=== PATIENT | female | born 1980 ===

== ENCOUNTER 2017-02-23 10:49 | Emergency (ER) | payer OTHER ==
[2017-02-23 10:55] VITALS: BP 151/95; PULSE 106; RESP 18; TEMP 98.2
[2017-02-23 11:00] VITALS: O2SAT 98
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
== END 2017-02-23 14:06 | disposition home or self-care (01) ==
LOC: MERGE 10:49 → H.ER 10:49
DX: S39.92XA Unspecified injury of lower back, initial encounter (principal); V43.52XA Car driver injured in collision with other type car in traffic accident, initial encounter; Y92.410 Unspecified street and highway as the place of occurrence of the external cause

== ENCOUNTER 2018-04-17 15:59 | Emergency (ER) | payer MEDICAID, OTHER ==
[2018-04-17 16:05] VITALS: RESP 18; O2SAT 99
--- NOTE | 2018-04-17 16:22 | ED PDOC ---
HPI: Female Pain Time Seen by Provider: 04/17/18 16:20 Chief Complaint (Nursing): Female Genitourinary Chief Complaint (Provider): with vaginal bleeding History Per: Patient Additional Complaint(s): 37-year-old female presents with vaginal bleeding that started earlier today. Patient states that she took several home test a few days ago and all came back positive. She estimates that she is approximately 67 weeks at this time. Patient was seen at primary care doctor's office and referred to ED for further evaluation. Patient states she did pass a large clot at home earlier today and has mild cramping pain. No fever or chills, no nausea or vomiting, no dysuria. PMD: [place] Past Medical History Reviewed: Historical Data, Nursing Documentation, Vital Signs Vital Signs: Last Vital Signs Temp 99.6 F 04/17/18 16:02 Pulse 116 H 04/17/18 16:02 Resp 18 04/17/18 16:02 BP 105/69 04/17/18 16:02 Pulse Ox 99 04/17/18 16:02 - Medical History PMH: No Chronic Diseases Other PMH: - Surgical History Other surgeries: Bartholin's cyst removal - Family History Family History: States: No Known Family Hx - Living Arrangements Living Arrangements: With Family - Social History Current smoker - smoking cessation education provided: No Alcohol: None Drugs: Denies - Home Medications Home Medications: Ambulatory Orders Medication Instructions Recorded Cyclobenzaprine [Cyclobenzaprine 10 mg PO BID #14 tab 02/23/17 HCl] Tramadol HCl [Ultram] 50 mg PO Q6 #6 tab 02/23/17 - Allergies Allergies/Adverse Reactions: Allergies Allergy/AdvReac Type Severity Reaction Status Date / Time No Known Allergies Allergy Verified 02/23/17 11:00 Review of Systems ROS Statement: Except As Marked, All Systems Reviewed And Found Negative Constitutional: Negative for: Fever Cardiovascular: Negative for: Chest Pain Respiratory: Negative for: Cough Gastrointestinal: Positive for: Abdominal Pain. Negative for: Nausea, Vomiting Genitourinary Female: Positive for: Vaginal Bleeding, Pelvic Pain. Negative for : Dysuria, Frequency, Vaginal Discharge Physical Exam - Reviewed Nursing Documentation Reviewed: Yes Vital Signs Reviewed: Yes - Physical Exam Appears: Positive for: Well, Non-toxic, No Acute Distress Skin: Positive for: Normal Color. Negative for: Rash Eye Exam: Positive for: Normal appearance Cardiovascular/Chest: Positive for: Regular Rate, Rhythm Respiratory: Positive for: Normal Breath Sounds Gastrointestinal/Abdominal: Positive for: Soft. Negative for: Tenderness, Distended, Guarding, Rebound Back: Negative for: L CVA Tenderness, R CVA Tenderness Extremity: Positive for: Normal ROM Neurologic/Psych: Positive for: Alert, Oriented - Laboratory Results Result Diagrams: 04/17/18 16:42 04/17/18 16:42 - ECG O2 Sat by Pulse Oximetry: 99 Pulse Ox Interpretation: Normal - Other Rad OB TV US X-Ray: Read By Radiologist X-Ray Interpretation: see below Medical Decision Making Medical Decision Makin-year-old female with vaginal bleeding Plan: Urine dip Urine test CBC CMP Blood type Beta TV OB US IV insertion US: FINDINGS: UTERUS: Uterus measures 7.7 x 4.7 x 5.4 cm. No intrauterine gestational sac identified. Normal in size and appearance. CERVIX: Measures 3.3 cm. Long and closed. No cervical abnormality seen. RIGHT OVARY: Measures 1.7 x 1.2 x 1.5 cm. No mass lesion. Normal flow. LEFT OVARY: Measures 3.3 x 2.0 x 2.1 cm. Complex cyst measuring 2.4 x 1.2 x 1.7 cm. Normal flow. FREE FLUID: None. OTHER FINDINGS: None. IMPRESSION: No intrauterine gestational sac. Findings may represent early normal/ abnormal with completed or ectopic not excluded. Close clinical follow-up with serial pelvic sonography and serum beta HCG levels is recommended. Complex left ovarian cyst measuring up to 2.4 cm. Beta is 16.75. Patient aware of diagnostic testing results. Patient was instructed to return to ED in 2 days for repeat beta, or sooner if acutely worse. Disposition - Clinical Impression Clinical Impression: Threatened miscarriage - Patient ED Disposition Is Patient to be Admitted: No Counseled Patient/Family Regarding: Studies Performed, Diagnosis, Need For Followup, Rx Given - Disposition Referrals: Frank Mendoza MD [Staff Provider] - Disposition: Routine/Home Disposition Time: 19:11 Condition: STABLE Additional Instructions: Return to emergency room in 2 days for repeat beta. Instructions: Threatened Miscarriage (DC) Forms: [employer] (Hungarian) Results - Lab Results Lab Results: 04/17/18 04/17/18 04/17/18 16:42 16:42 16:30 WBC 8.3 RBC 4.63 Hgb 13.8 Hct 40.6 MCV 87.7 MCH 29.9 MCHC 34.1 RDW 13.4 Plt Count 284 MPV 8.4 Neut % (Auto) 60.5 Lymph % (Auto) 26.9 [place] % (Auto) 10.4 H Eos % (Auto) 1.3 Baso % (Auto) 0.9 Neut # (Auto) 5.0 Lymph # (Auto) 2.2 [place] # (Auto) 0.9 H Eos # (Auto) 0.1 Baso # (Auto) 0.1 Sodium 140 Potassium 4.5 Chloride 106 Carbon Dioxide 23 Anion Gap 16 BUN 12 Creatinine 0.6 L Est GFR ( Amer) > 60 Est GFR (Non-Af Amer) > 60 Random Glucose 106 H Calcium 9.5 Total Bilirubin 0.4 AST 21 ALT 19 Alkaline Phosphatase 37 L Total Protein 7.2 Albumin 4.4 Globulin 2.9 Albumin/Globulin Ratio 1.5 Beta HCG, Quant 16.75 Blood Type A POSITIVE Antibody Screen Negative BBK History Checked Patient has bt
[2018-04-17 16:46] LABS: BASO # 0.1 K/uL (0.0-0.2); BASO % 0.9 % (0.0-2.0); EOS # 0.1 K/uL (0.0-0.7); EOS % 1.3 % (0.0-4.0); HEMOGLOBIN 13.8 g/dL (12.0-16.0); LYMPH # 2.2 K/uL (1.0-4.3); LYMPH % 26.9 % (20.0-40.0); MEAN CELL VOLUME 87.7 fl (81.0-99.0); MEAN CORPUSCULAR HEMOGLOBIN 29.9 pg (27.0-31.0); MEAN CORPUSCULAR HGB CONC 34.1 g/dL (33.0-37.0); MEAN PLATELET VOLUME 8.4 fl (7.2-11.7); MONO # 0.9 K/uL (0.0-0.8); MONO % 10.4 % (0.0-10.0); NEUT % 60.5 % (50.0-75.0); RBC 4.63 Mil/uL (3.80-5.20); RED CELL DISTRIBUTION WIDTH 13.4 % (11.5-14.5); WHITE BLOOD COUNT 8.3 K/uL (4.8-10.8)
[2018-04-17 17:17] LABS: ALB/GLOB RATIO 1.5 (1.0-2.1); ALBUMIN 4.4 g/dL (3.5-5.0); ALT/SGPT 19 U/L (9-52); AST/SGOT 21 U/L (14-36); BLOOD UREA NITROGEN 12 mg/dl (7-17); CALCIUM 9.5 mg/dL (8.4-10.2); GFR NON-AFRICAN AMERICAN > 60
--- NOTE | 2018-04-17 18:30 | US ---
Date of service: 04/17/2018 PROCEDURE: OB Pelvic Ultrasound HISTORY: approx 7 weeksw with vaginal bleeding LMP: 03/14/2018 COMPARISON: Pelvic ultrasound dated 01/10/2012. FINDINGS: UTERUS: Uterus measures 7.7 x 4.7 x 5.4 cm. No intrauterine gestational sac identified. Normal in size and appearance. CERVIX: Measures 3.3 cm. Long and closed. No cervical abnormality seen. RIGHT OVARY: Measures 1.7 x 1.2 x 1.5 cm. No mass lesion. Normal flow. LEFT OVARY: Measures 3.3 x 2.0 x 2.1 cm. Complex cyst measuring 2.4 x 1.2 x 1.7 cm. Normal flow. FREE FLUID: None. OTHER FINDINGS: None. IMPRESSION: No intrauterine gestational sac. Findings may represent early normal/ abnormal with completed or ectopic not excluded. Close clinical follow-up with serial pelvic sonography and serum beta HCG levels is recommended. Complex left ovarian cyst measuring up to 2.4 cm.
[2018-04-17 19:25] VITALS: BP 146/92; PULSE 109; TEMP 99.5
== END 2018-04-17 19:33 | disposition home or self-care (01) ==
LOC: H.ER 15:59
DX: O20.0 Threatened abortion (principal)